=== PATIENT | male | born 1985 | race Caucasian/White ===

== ENCOUNTER → 2019-01-12 | Outpatient (CLI) | payer BC ==
[2019-01-12 12:20] LABS: Basophils % (A) 0 %; Eosinophils # (A) 0.4 k/uL (0-0.7); Eosinophils % (A) 4 %; HCT 42.3 % (39.0-53.0); HGB 14.6 gm/dL (13.0-17.5); Lymphocytes # (A) 1.1 k/uL (1.0-4.8); Lymphocytes % (A) 11 %; MCH 30.3 pg (25.0-35.0); MCHC 34.6 g/dL (31.0-37.0); MCV 87.7 fL (80.0-100.0); Mean Platelet Volume 6.8; Monocytes # (A) 0.6 k/uL (0-1.0); Monocytes % (A) 6 %; Neutrophils % (A) 79 %; Platelet Count 239 k/uL (150-450); RBC 4.82 m/uL (4.30-5.90); RDW 14.4 % (11.5-15.5); WBC 10.2 k/uL (3.8-10.6)
[2019-01-12 12:22] LABS: INR 0.9 (<1.2); Prothrombin Time 10.2 sec (9.0-12.0)
== END | disposition home or self-care (01) ==
LOC: LABPAT 11:13
PROVIDERS: ATTEND Orthopaedic Surgery
DX: Z01.812 Encounter for preprocedural laboratory examination (principal); S82.202D Unspecified fracture of shaft of left tibia, subsequent encounter for closed fracture with routine healing
CPT/HCPCS: 36415; 80051; 85025; 85610

== ENCOUNTER 2019-01-14 09:27 | Inpatient (IN) | payer BC ==
[~2019-01-14 09:27] MED LIST: DEXAMETHASONE SOD PHOSPHATE 10 MG/ML 1 ML VIAL IV ONE; LIDOCAINE 1% 20 ML VIAL (10MG/ML) FOR IV START INTRADERMA PRN; MIDAZOLAM (PF) 2 MG/2 ML VIAL IV PRN; ONDANSETRON 4 MG/2 ML VIAL IVP ONE; SCOPOLAMINE 1.5MG/72HR PATCH TRANSDERM ONE; ceFAZolin 3 GM in SODIUM CHLORIDE 0.9% 100 ML IVPB ONE
[2019-01-14] MEDS: LACTATED RINGERS 1,000 ML IV SCH (10:15)
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
[2019-01-14] MEDS ORDERED: LIDOCAINE 1% INJ 10MG/ML (20 ML MDV) ONE (13:18)
[2019-01-14] MEDS ORDERED: HYDROmorphone (PF) 1 MG/ML ONE (13:18)
[2019-01-14] MEDS ORDERED: PROPOFOL 10 MG/ML 20 ML VIAL IV ONE (13:18)
[2019-01-14] MEDS ORDERED: fentaNYL (PF) 50 MCG/ML 2 ML AMP ONE (13:18)
[2019-01-14] MEDS ORDERED: MIDAZOLAM 2 MG/2 ML VIAL ONE (13:18)
[2019-01-14] MEDS ORDERED: SUCCINYLCHOLINE CHLORIDE 100 MG/5 ML SYR IV ONE (13:18)
[2019-01-14] MEDS ORDERED: LACTATED RINGERS 1,000 ML IV ONE (14:59)
[2019-01-14] MEDS ORDERED: NALOXONE 0.4 MG/ML 1 ML VIAL IV PRN (15:25)
[2019-01-14] MEDS ORDERED: ONDANSETRON 4 MG/2 ML VIAL IVP PRN (15:25)
[2019-01-14] MEDS ORDERED: HYDROcodone/APAP 5-325MG 1 EACH TAB PO PRN ×2 (15:25)
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
--- NOTE | 2019-01-14 15:51 | FL ---
Fluoroscopy HISTORY: Intramedullary nkechi placement 33 seconds fluoroscopy time supplied to the referring clinician. 7 intraoperative C-arm images docum ent the procedure. See dictated report from orthopedic surgery.
--- NOTE | 2019-01-14 15:52 | XR ---
Limited left leg HISTORY: Intramedullary nkechi placement 7 intraoperative C-arm images document the procedure.
[2019-01-14] MEDS: HYDROmorphone 0.5 MG/0.5 ML SYRINGE IVP PRN ×2 (16:10→16:25)
[2019-01-14 17:24] VITALS: BMI 46.8
[2019-01-14] MEDS: HYDROmorphone 1 MG/ML 1 ML SYRINGE IVP PRN ×2 (17:33→21:06)
[2019-01-14] MEDS: hydrOXYzine PAMOATE 25 MG CAP PO PRN (17:33)
[2019-01-14] MEDS: ceFAZolin IN SWFI 2 GM/20 ML SYRINGE IVP SCH (21:06)
[2019-01-15] MEDS: HYDROmorphone 1 MG/ML 1 ML SYRINGE IVP PRN ×3 (00:25→05:54)
[2019-01-15 02:13] VITALS: TEMP 97.5
[2019-01-15] MEDS: ceFAZolin IN SWFI 2 GM/20 ML SYRINGE IVP SCH (05:43)
[2019-01-15] MEDS: LACTATED RINGERS 1,000 ML IV SCH (05:44)
[2019-01-15 07:31] VITALS: BP 174/73; PULSE 73; RESP 16
[2019-01-15] MEDS: hydrOXYzine PAMOATE 25 MG CAP PO PRN (07:36)
[2019-01-15] MEDS ORDERED: ASPIRIN 325 MG TAB PO SCH (09:00)
--- NOTE | 2019-01-15 11:10 | P.PN ---
Subjective Progress Note Date: 01/15/19 Principal diagnosis: Status post intramedullary nailing left tibial shaft fracture Patient evaluated at bedside, is resting comfortably. His pain is well- controlled. Denies any fevers or chills. Objective - Vital Signs Vital signs: Vital Signs Temp 97.5 F L 01/15/19 07:29 Pulse 73 01/15/19 07:29 Resp 16 01/15/19 07:29 BP 174/73 01/15/19 07:29 Pulse Ox 95 01/15/19 07:29 Intake & Output 01/14/19 01/15/19 01/15/19 18:59 06:59 18:59 Intake Total 1500 160 Output Total 50 500 Balance 1450 160 -500 Intake: IV 1500 Intake, IV Titration 160 Amount Lactated Ringers 1,000 ml 160 @ 20 mls/hr IV .Q24H TURNER Rx#:[id number] Output: Urine 500 Estimated Blood Loss 50 Other: Voiding Method Toilet Toilet Toilet Urinal # Voids 2 - Exam Left lower extremity: Initial postoperative management was changed, isidro are in good position and condition. Minimal soft tissue swelling present throughout the extremity, compartments are soft. Calf is soft, no tenderness with palpation. Dorsalis pedis pulses 2+. Sensory exam to light touch throughout the extremity is intact. Assessment and Plan Plan: Assessment: Postoperative day #1 status post IM nail left tibial shaft fracture Plan: Pain control, will plan for discharge home on oral medication GI and DVT prophylaxis, aspirin 325 mg daily at discharge Wound care instructions discussed Nonweightbearing left lower extremity, utilizing the immobilizer and crutches/ Walker Discharge planning: Patient will be discharged home today Time with Patient: Less than 30
--- NOTE | 2019-01-15 11:15 | P.DS ---
Providers Date of admission: 01/14/19 09:27 Expected date of discharge: 01/15/19 Attending physician: Surendra Sheth Primary care physician: Stated None Hospital Course: Date of admission: 01/14/2019 Date of discharge: 01/15/2019 Admission diagnosis: Status post IM nail left tibia shaft fracture Discharge diagnosis: Same Attending physician: Dr. Sheth Surgical procedures: Intramedullary nailing left tibial shaft fracture Brief history: Patient is a 33-year-old male with a history of a left tibial shaft fracture. Patient was evaluated in the outpatient setting by [facility] Blas surgical intervention would be needed. Scheduled for surgery on 2018. Hospital course: Details of patient's surgery can be found in operative report. Patient tolerated the procedure well and was subsequently transported to orthopedic floor. Patient's orthopeidc and medical care was provided daily. Patient had daily laboratory tests performed for evaluation of overall blood counts. Patient had daily physical therapy to include strengthening range of motion as well as education with walker ambulation. Patient was treated with aspirin for their postoperative DVT prophylaxis during their inpatient stay. Patient was noted to have a relatively uneventful postoperative course. Patient reported satisfactory pain control with oral pain medications by postoperative day 0. Patient showed satisfactory progress with physical therapy. Patient moved steadily through the program and had no difficulty meeting the goals by postoperative day 1. Given patient's otherwise satisfactory course and having met physical therapy goals, plan is to discharge patient home on postoperative day 1. Discharge condition/disposition: Patient will be discharged home in stable condition. Discharge medications: Instructions are given on resumption of patient's normal daily medications per primary care recommendation, in addition patient will be prescribed Austin 5 mg/325 mg, aspirin 325 mg. Discharge instructions: 1. Wound care and infection precautions, keep incision dry and covered while showering, no lotions, creams, moisturizers. No soaking, tubs, pools, hottubs. Do not scrub over the incision. 2. Nonweightbearing left lower extremity, utilize crutches 3. Ice and elevate when necessary. Do not exceed 20 minutes per hour with ice pack. 4. Utilize compression sleeve until seen at first follow up appointment. 7. Pain meds and anticoagulants per prescription. 8. Pain medication has potential to cause constipation. Increase oral fluid and fiber intake. Contact primary care provider if you have not had a bowel movement within 48 hours after discharge 10. Follow up in office at 2 weeks postop with Jt Fritz PA-C 11. Follow up with your primary care doctor 7-10 days after discharge. 12. Contact [facility] with any questions, . Procedures: Intramedullary nailing left tibial shaft fracture Patient Condition at Discharge: Good Plan - Discharge Summary Discharge Rx Participant: No New Discharge Prescriptions: New Aspirin 325 mg PO DAILY #30 tab Hydrocodone/Acetaminophen [Austin 5-325] 1 - 2 each PO Q6HR PRN #40 tab PRN Reason: Pain No Action HYDROcodone/APAP 10-325MG [Austin 10-325] 1 tab PO Q4HR PRN PRN Reason: Pain Ranitidine HCl [Zantac] 150 mg PO DAILY PRN PRN Reason: acid reflux Discharge Medication List HYDROcodone/APAP 10-325MG [Austin 10-325] 1 tab PO Q4HR PRN 01/12/19 [History] Ranitidine HCl [Zantac] 150 mg PO DAILY PRN 01/12/19 [History] Aspirin 325 mg PO DAILY #30 tab 01/15/19 [Rx] Hydrocodone/Acetaminophen [Austin 5-325] 1 - 2 each PO Q6HR PRN #40 tab 01/15/19 [Rx] Follow up Appointment(s)/Referral(s): Javy Fritz PAC [PHYSICIAN [employer]PER[employer]OR] - 2 Weeks Activity/Diet/Wound Care/Special Instructions: Discharge instructions: 1. Nonweightbearing left lower extremity, utilize walker 2. Pain medication as needed 3. Aspirin 325 mg daily for DVT prophylaxis 4. Ice and elevate often 5. Keep incision covered while showering 6. Follow-up at [facility] in 2 weeks Discharge Disposition: HOME SELF-CARE
--- NOTE | 2019-01-16 11:11 | CDI ---
Documentation Clarification Form Date: 01/16/2019 11:01:56 AM From: Ria Obregon Phone: If you have a question about this query, please contact Renee Henry Motor Vehicle Operator Road Supervisor at [phone] between 8am and 5pm. Admit Date: 01/14/2019 9:27:00 AM Patient Name: Cody Worrell I Visit Number: [id number] Discharge Date: 01/15/2019 3:45:00 PM ATTENTION: The Clinical Documentation Specialists (CDI) and [facility] Coding Staff appreciate your assistance in clarifying documentation. Please respond to the clarification below the line at the bottom and electronically sign. The CDI & [facility] Coding staff will review the response and follow-up if needed. Please note: Queries are made part of the Legal Health Record. If you have any questions, please contact the author of this message via ITS. Dr. Surendra Sheth Patient has been described as having increased BMI. BMI 48.2 History/Risk Factors: fracture tibia shaft Patients weight is 165.56 Kg Patients height is 6'1" Calculated BMI is 48.2 In order to capture the severity of condition associated with patient BMI of 48.2, a clinical diagnosis needs to be documented by the physician. Please clarify: Overweight Obesity, Class 1 Obesity, Class 2 Extreme (Morbid) (severe) obesity Other, please specify ____ Unable to determine NIH Classification for BMI: Overweight BMI 25-29.9 Obesity (Class 1) BMI 30-34.9 Obesity (Class 2) BMI 35-39.9 Extreme (Morbid) (severe) obesity BMI =40 morbid obesity MTDD
--- NOTE | 2019-01-16 11:28 | P.ONQ ---
Anesthesiology Proc Note - PNB - Peripheral Nerve Block Performed Left Adductor Canal Single Time Out Performed: Yes Indication: Acute Post-Operative Pain, Dx/Pain Location (Left Knee Pain), Requested by physician Catheter: None Needle Types: On-Q Needle Size: 100mm (4") Needle Gauge: 21 Technique: Ultrasound Injectate: 0.5% Ropivacaine (see comment for volume) (20ml) Blood Aspirated: No Pain Paresthesia on Injection Noted: No Resistance on Injection: Normal Events: Uneventful and Well Tolerated
== END 2019-01-15 15:45 | disposition home or self-care (01) | DRG 493 ==
LOC: 2ORMAIN 09:27 → 4SSUR 15:43
PROVIDERS: ADMIT Orthopaedic Surgery; ATTEND Orthopaedic Surgery
PROC: 0QHH06Z Insertion of Intramedullary Internal Fixation Device into Left Tibia, Open Approach (ICD-10-PCS; principal; 2019-01-14 13:00)
DX: S82.292A Other fracture of shaft of left tibia, initial encounter for closed fracture (principal); Z68.42 Body mass index [BMI] 45.0-49.9, adult; V86.52XA Driver of snowmobile injured in nontraffic accident, initial encounter; E66.01 Morbid (severe) obesity due to excess calories; Y93.29 Activity, other involving ice and snow; F17.210 Nicotine dependence, cigarettes, uncomplicated
CPT/HCPCS: 36415; 80051; 85025; 85610; 94660

== ENCOUNTER → 2019-05-05 | Outpatient (CLI) | payer BC ==
[2019-05-05 16:34] LABS: HCT 46.4 % (39.0-53.0); HGB 15.3 gm/dL (13.0-17.5); MCH 28.9 pg (25.0-35.0); MCHC 33.1 g/dL (31.0-37.0); MCV 87.4 fL (80.0-100.0); Platelet Count 245 k/uL (150-450); RDW 14.5 % (11.5-15.5); WBC 9.1 k/uL (3.8-10.6)
== END | disposition home or self-care (01) ==
LOC: LABPAT 13:52
PROVIDERS: ATTEND Anesthesiology
DX: Z01.812 Encounter for preprocedural laboratory examination (principal); T84.89XD Other specified complication of internal orthopedic prosthetic devices, implants and grafts, subsequent encounter
CPT/HCPCS: 36415; 85027

== ENCOUNTER → 2019-05-08 | Day surgery (SDC) | payer BC ==
[2019-05-05 12:11] VITALS: BMI 48.1
--- NOTE | 2019-05-07 11:44 | HP ---
HISTORY AND PHYSICAL CHIEF COMPLAINT: Left leg pain. 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 He has been full weightbearing. He notes soreness and aching with weightbearing activities. PAST MEDICAL HISTORY: Otherwise negative. PAST SURGICAL HISTORY: Significant for intramedullary nailing of a left tibial shaft fracture. CURRENT MEDICATIONS: None he denies drug allergies. FAMILY HISTORY: Noncontributory. SOCIAL HISTORY: Negative for current tobacco or alcohol use. REVIEW OF SYSTEMS: A 16-point review of systems otherwise reviewed and is noncontributory. PHYSICAL EXAMINATION: On examination, the patient is approximately 6 feet tall, 365 pounds of mesomorphic, very endomorphic habitus. HEENT: Exam is nonfocal. Neck: Supple. On examination of his left lower extremity, He has painless passive motion of the left hip. He is nontender about the left knee. He is tender about the mid shaft of the tibia. Ankle motion is 20 degrees dorsiflexion, 45 degrees plantar flexion. His distal neurovascular appears intact in the left lower extremity. Previous x-rays of the left tibia/fibula obtained in the office show previous static intramedullary nailing of left midshaft tibia fracture with persisting gap at the tibial fracture site. IMPRESSION: Status post IM nailing, left tibial shaft fracture with delayed union. RECOMMENDATION: I talked to the patient at length regarding his condition and treatment options. At this point, we will plan to proceed with dynamizing his nail to encourage further bony healing. We will likely perform that as an outpatient procedure utilizing local anesthetic and IV sedation. It will likely be performed as an outpatient procedure. MMODL / IJN: [id number] /
[~2019-05-08] MED LIST changes: +BUPIVACAINE (PF) 0.25% 30 ML VIAL SQ ONE; +HYDROmorphone 0.5 MG/0.5 ML SYRINGE IVP PRN; +KETAMINE 10 MG/ML 20 ML VIAL ONE; +KETOROLAC 30 MG/ML 1 ML VIAL IVP SCH; +LACTATED RINGERS 1,000 ML IV ONE; +LACTATED RINGERS 1,000 ML IV SCH; +METOCLOPRAMIDE 5 MG/ML 2 ML VIAL IVP PRN; -MIDAZOLAM (PF) 2 MG/2 ML VIAL IV PRN; +MIDAZOLAM 2 MG/2 ML VIAL ONE; +ONDANSETRON 4 MG/2 ML VIAL IVP PRN; +PROPOFOL 10 MG/ML 20 ML VIAL IV ONE; -SCOPOLAMINE 1.5MG/72HR PATCH TRANSDERM ONE; +fentaNYL (PF) 50 MCG/ML 2 ML AMP ONE
--- NOTE | 2019-05-08 10:16 | P.OP ---
Date of Procedure: 05/08/19 Preoperative Diagnosis: Delayed union left tibial shaft fracture status post static intramedullary nailing Postoperative Diagnosis: Same Procedure(s) Performed: Removal distal locking screw 2 left tibial nail Anesthesia: MAC, local Surgeon: Surendra Sheth Lead Tinner #1: Javy Fritz Estimated Blood Loss (ml): 10 Pathology: none sent Condition: stable Disposition: PACU Indications for Procedure: The patient's a 33-year-old male who underwent intramedullary nailing for a displaced left tibial shaft fracture several months ago presents with persistent gapping at the fracture site. A discussion of the risks and benefits of dynamization of his nail was made with patient. He opted to proceed. Risks of this procedure to include persistence of delayed union and possible need for subsequent procedures was discussed. Informed consent was obtained. Operative Findings: As below Description of Procedure: The patient was brought to the operating room, and after induction of IV sedation the left lower extremity was prepped and draped in normal fashion. 20 mL of one quarter percent plain Marcaine was injected around the proposed incision sites. Two 1 cm incisions were then made over the previously placed distal locking screws. The skin was incised sharply. Subcutaneous tissues were divided bluntly. Fluoroscopy was used to aid in removal of the screws. The 2 distal locking screws were then removed. The wounds were irrigated with normal saline. The skin was reapproximated with simple 3-0 nylon suture. A sterile dressing was applied. The patient was awoken from sedation and transferred to recovery room in good condition. Blood loss was estimated at 10 mL. No complications were incurred. Sponge and needle counts were correct at the end of the case.
[2019-05-08 10:26] VITALS: TEMP 98
[2019-05-08 10:47] VITALS: RESP 17
[2019-05-08 10:58] VITALS: BP 167/82; PULSE 79
--- NOTE | 2019-05-08 11:11 | FL ---
EXAMINATION TYPE: FL guidance operating room, XR ankle limited LT DATE OF EXAM: 05/08/2019 CLINICAL HISTORY: Hardware removal of the tibia and fibula. TECHNIQUE: Fluoroscopy. COMPARISON: None. FINDINGS: Fluoroscopic guidance was provided during pain relief procedure performed by Dr. Sheth . A total of 1 seconds of fluoroscopic time was utilized during the procedure and 1 spot images are acq uired. Images acquired shows documentation during removal of 2 screws from the left ankle. IMPRESSION: As Above.
== END | disposition home or self-care (01) ==
LOC: OR 07:31
PROVIDERS: ATTEND Orthopaedic Surgery
DX: S82.202G Unspecified fracture of shaft of left tibia, subsequent encounter for closed fracture with delayed healing (principal); X58.XXXD Exposure to other specified factors, subsequent encounter; K21.9 Gastro-esophageal reflux disease without esophagitis; G47.33 Obstructive sleep apnea (adult) (pediatric); Z99.89 Dependence on other enabling machines and devices; Z91.19 Patient's noncompliance with other medical treatment and regimen; E66.9 Obesity, unspecified; Z68.42 Body mass index [BMI] 45.0-49.9, adult; F17.210 Nicotine dependence, cigarettes, uncomplicated; Z79.1 Long term (current) use of non-steroidal anti-inflammatories (NSAID)
CPT/HCPCS: 20680; 73600; J2250; J1100; J0690; J2405; J3010; J2704